=== PATIENT | female | born 1985 | race American Indian/Alaskan Native ===

== ENCOUNTER 2021-01-20 19:07 | Emergency (ER) | payer BC ==
[2021-01-20] MEDS ORDERED: HALOPERIDOL LACTATE 5 MG/1 ML INJ IM PRN (19:37)
[2021-01-20] MEDS ORDERED: diphenhydrAMINE 50 MG/ML VIAL IM ONE (19:37)
--- NOTE | 2021-01-20 19:45 | Emergency Department Report ---
ED General Adult HPI - General Chief complaint: Psych Stated complaint: ALFA CARO PUI?: No Time Seen by Provider: 01/20/21 19:28 Source: EMS ( EMS documentation not available at time of chart dictation ), RN notes reviewed Mode of arrival: Stretcher Limitations: Other (Acute psychosis and disorganized behavior) - History of Present Illness Initial comments: The patient was evaluated in the emergency department for symptoms described in the history of present illness. He/she was evaluated in the context of the global COVID-19 pandemic, which necessitated consideration that the patient might be at risk for infection with the virus that causes COVID-19. Institutional protocols and algorithms that pertain to the evaluation of patients at risk for COVID-19 are in a state of rapid change based on information released by regulatory bodies including the CDC and federal and state organizations. These policies and algorithms were followed during the patient's care in the emergency department. Please note that these policies, procedures and recommendations changed on a rapid basis. This is a 35-year-old female. She is not known to myself previously. She is reportedly brought to the hospital by emergency medical services. Apparently, patient's significant other contacted emergency medical services because of abnormal behavior. The patient is standing and not verbal. She walks around with a steady gait. She walks in circles. She is making nonsensical sounds. The patient is not currently accompanied by friends or family at this time for additional information/collateral information. Patient herself appears to be acutely psychotic, and can therefore not describe the qualitative nature of her symptoms, exacerbating factors, relieving factors, or aggravating factors. History of present illness obtained entirely from collateral information from verbal and written report from nursing team. No additional history is available at this time. During the entire history and physical examination, I am chaperoned by youth teacher Chandrika Rowley. -: unknown - Related Data Previous Rx's Medication Instructions Recorded Last Taken Type OLANZapine [Zyprexa] 5 mg PO DAILY #30 tablet 01/22/21 Unknown Rx traZODone [Desyrel] 50 mg PO QHS #30 tab 01/22/21 Unknown Rx Allergies Allergy/AdvReac Type Severity Reaction Status Date / Time No Known Allergies Allergy Unverified 01/20/21 19:30 ED Review of Systems ROS: Stated complaint: ALFA EVAL Other details as noted in HPI Comment: Unobtainable due to pts medical conditions ED Past Medical Hx - Past Medical History Hx Psychiatric Treatment: Yes (bipolar) - Social History Smoking Status: Unknown if ever smoked Substance Use Type: None - Medications Home Medications: Home Medications Medication Instructions Recorded Confirmed Last Taken Type OLANZapine [Zyprexa] 5 mg PO DAILY #30 tablet 01/22/21 Unknown Rx traZODone [Desyrel] 50 mg PO QHS #30 tab 01/22/21 Unknown Rx ED Physical Exam - General Limitations: Other (Acute psychosis) General appearance: in no apparent distress, anxious - Head Head exam: Present: atraumatic, normocephalic - Eye Eye exam: Present: normal appearance, EOMI - ENT ENT exam: Present: normal exam, normal orophraynx, mucous membranes moist, normal external ear exam - Neck Neck exam: Present: normal inspection, full ROM. Absent: tenderness, meningismus - Respiratory Respiratory exam: Present: normal lung sounds bilaterally. Absent: respiratory distress, wheezes, rales, rhonchi, stridor, decreased breath sounds - Cardiovascular Cardiovascular Exam: Present: regular rate, normal rhythm, normal heart sounds. Absent: bradycardia, tachycardia, irregular rhythm, systolic murmur, diastolic murmur, rubs, gallop - GI/Abdominal GI/Abdominal exam: Present: soft. Absent: distended, tenderness, guarding, rebound, rigid, pulsatile mass - Extremities Exam Extremities exam: Present: normal inspection, full ROM, other (2+ pulses noted in the bilateral upper and lower extremities. There is no palpable cord. negative Homans sign. Muscular compartments are soft. The pelvis is stable.). Absent: pedal edema, calf tenderness - Back Exam Back exam: Present: normal inspection, full ROM. Absent: tenderness, CVA tende rness (R), CVA tenderness (L), paraspinal tenderness, vertebral tenderness - Neurological Exam Neurological exam: Present: altered (The patient is awake. The patient is walking in circles. The patient moves 4 extremities. The patient is nonverbal. The patient is humming to herself), other (There is no facial droop. Extraocular movements are intact.) - Psychiatric Psychiatric exam: Present: other (The patient is nonverbal) - Skin Skin exam: Present: warm, dry, intact, normal color. Absent: rash ED Course Vital Signs 01/20/21 01/20/21 01/20/21 19:35 21:22 21:27 Temperature 98.5 F Pulse Rate 129 H 129 H Respiratory 18 14 18 Rate Blood Pressure 126/93 Blood Pressure 126/93 [Right] O2 Sat by Pulse 99 99 Oximetry 01/20/21 01/20/21 01/20/21 23:18 23:30 23:46 Temperature Pulse Rate 97 H 97 H Respiratory 15 16 Rate Blood Pressure 119/82 116/77 Blood Pressure [Right] O2 Sat by Pulse 97 95 96 Oximetry 01/20/21 01/21/21 01/21/21 23:49 00:00 00:16 Temperature Pulse Rate 94 H 98 H 97 H Respiratory 16 15 14 Rate Blood Pressure 118/76 116/73 116/73 Blood Pressure [Right] O2 Sat by Pulse 97 97 96 Oximetry 01/21/21 01/21/21 01/21/21 00:30 00:46 01:00 Temperature Pulse Rate 94 H 86 99 H Respiratory 14 14 14 Rate Blood Pressure 117/73 117/73 128/81 Blood Pressure [Right] O2 Sat by Pulse 98 98 98 Oximetry 01/21/21 01/21/21 01/21/21 01:16 01:30 01:46 Temperature Pulse Rate 96 H 98 H 87 Respiratory 18 15 15 Rate Blood Pressure 128/81 128/81 Blood Pressure [Right] O2 Sat by Pulse 97 97 97 Oximetry 01/21/21 01/21/21 01/21/21 02:00 02:16 02:30 Temperature Pulse Rate 102 H 102 H 97 H Respiratory 16 14 15 Rate Blood Pressure 109/69 109/69 110/71 Blood Pressure [Right] O2 Sat by Pulse 96 96 96 Oximetry 01/21/21 01/21/21 01/21/21 02:46 03:00 03:15 Temperature Pulse Rate 98 H 89 90 Respiratory 15 13 12 Rate Blood Pressure 110/71 119/80 119/80 Blood Pressure [Right] O2 Sat by Pulse 96 97 95 Oximetry 01/21/21 01/21/21 01/21/21 03:30 03:46 04:00 Temperature Pulse Rate 95 H 98 H 101 H Respiratory 15 15 14 Rate Blood Pressure 114/77 114/77 119/71 Blood Pressure [Right] O2 Sat by Pulse 97 96 96 Oximetry 01/21/21 01/21/21 01/21/21 04:16 04:30 04:46 Temperature Pulse Rate 82 93 H 100 H Respiratory 14 13 15 Rate Blood Pressure 119/71 117/81 117/81 Blood Pressure [Right] O2 Sat by Pulse 94 96 96 Oximetry 01/21/21 01/21/21 01/21/21 05:00 13:36 13:45 Temperature 98.7 F 99.1 F Pulse Rate 125 H 156 H 136 H Respiratory 20 15 Rate Blood Pressure Blood Pressure 143/99 134/91 [Right] O2 Sat by Pulse 98 99 Oximetry 01/21/21 01/21/21 01/21/21 13:49 14:22 20:29 Temperature 98.2 F Pulse Rate 126 H 121 H 95 H Respiratory 18 17 18 Rate Blood Pressure Blood Pressure 151/107 162/105 131/99 [Right] O2 Sat by Pulse 98 98 99 Oximetry 01/21/21 01/21/21 01/22/21 22:35 23:00 08:02 Temperature 98.9 F Pulse Rate 91 H 89 Respiratory 17 20 Rate Blood Pressure 133/98 Blood Pressure 122/82 [Right] O2 Sat by Pulse 97 99 Oximetry - Reevaluation(s) Reevaluation #1: 01/20/21 19:47 Differential diagnosis, including but not limited to: Psychosis, medical clearance for psychiatric evaluation, electrolyte derangement, thyroid derangeme nt, structural intracranial abnormality, urinary tract infection Assessment and plan: 35-year-old female, with a possible history of bipolar disorder, who presents with probable acute decompensated psychosis. Patient not currently accompanied by friends or family at this time for additional information/collateral information, and as of this time, registration staff has not been able to provide me with the phone number of his significant other for collateral information. Patient placed on hold/1012. Appropriate screening laboratory studies, noncontrast CT scan of the brain, EKG ordered, Covid swab ordered in anticipation of placement in a psychiatric unit, patient did not respond to verbal commands, and will therefore required medication with haloperidol, Ativan, Benadryl, for acquisition of diagnostic studies to exclude emergent medical condition. Patient will be placed on a cardiac cath rn, and observed appropriately. Reevaluation #2: 01/20/21 23:[address] scan of the brain negative for acute findings. Urinalysis pending at this time Reevaluation #3: 01/21/21 00:45 Tachycardia resolved. Patient resting comfortably. Urinalysis pending at this time. At the moment, patient does not appear to have an immediate medical contraindication to psychiatric admission, evaluation, consultation and placement. She may be placed in the back psychiatric room pending psychiatric consultation. Patient's care was transferred to the overnight physician to follow-up on urinalysis. Reevaluation #4: 01/21/21 19:52 Urine sample contaminated with excessive epithelial cells. Given young age, lack of immune compromise, lack of fever, leukocytosis, do not suspect urinary tract infection or urinary pathology at this time. However, we will order repeat clean-catch urine sample. ED Medical Decision Making - Lab Data Result diagrams: 01/20/21 21:16 01/20/21 21:16 Vital Signs 01/20/21 21:27 Temperature 98.5 F Pulse Rate 129 H Respiratory 18 Rate Blood Pressure 126/93 [Right] O2 Sat by Pulse 99 Oximetry Lab Results 01/20/21 01/20/21 01/20/21 Range/Units 21:16 21:16 21:16 WBC 9.8 (4.5-11.0) K/mm3 RBC 4.55 (3.65-5.03) M/mm3 Hgb 14.1 (10.1-14.3) gm/dl Hct 40.8 (30.3-42.9) % MCV 90 (79-97) fl MCH 31 (28-32) pg MCHC 34 (30-34) % RDW 13.5 (13.2-15.2) % Plt Count 309 (140-440) K/mm3 Sodium 144 (137-145) mmol/L Potassium 4.3 (3.6-5.0) mmol/L Chloride 108.9 H (98-107) mmol/L Carbon Dioxide 24 (22-30) mmol/L Anion Gap 15 mmol/L BUN 11 (7-17) mg/dL Creatinine 0.9 (0.6-1.2) mg/dL Estimated GFR > 60 ml/min BUN/Creatinine Ratio 12 % Glucose 109 H (65-100) mg/dL Calcium 9.3 (8.4-10.2) mg/dL Magnesium 2.00 (1.7-2.3) mg/dL Total Bilirubin 0.20 (0.1-1.2) mg/dL AST 22 (5-40) units/L ALT 31 (7-56) units/L Alkaline Phosphatase 86 (35-129) units/L Total Creatine Kinase 549 H (30-135) units/L Total Protein 7.7 (6.3-8.2) g/dL Albumin 4.5 (3.9-5) g/dL Albumin/Globulin Ratio 1.4 % TSH 4.500 H (0.270-4.200) mlU/mL HCG, Quant (0-4) mIU/mL Salicylates (2.8-20.0) mg/dL Acetaminophen (10.0-30.0) ug/mL [place] (0.0-1.2) mmol/L Plasma/Serum Alcohol (0-0.07) % 01/20/21 01/20/21 01/20/21 Range/Units 21:16 21:16 21:16 WBC (4.5-11.0) K/mm3 RBC (3.65-5.03) M/mm3 Hgb (10.1-14.3) gm/dl Hct (30.3-42.9) % MCV (79-97) fl MCH (28-32) pg MCHC (30-34) % RDW (13.2-15.2) % Plt Count (140-440) K/mm3 Sodium (137-145) mmol/L Potassium (3.6-5.0) mmol/L Chloride (98-107) mmol/L Carbon Dioxide (22-30) mmol/L Anion Gap mmol/L BUN (7-17) mg/dL Creatinine (0.6-1.2) mg/dL Estimated GFR ml/min BUN/Creatinine Ratio % Glucose (65-100) mg/dL Calcium (8.4-10.2) mg/dL Magnesium (1.7-2.3) mg/dL Total Bilirubin (0.1-1.2) mg/dL AST (5-40) units/L ALT (7-56) units/L Alkaline Phosphatase (35-129) units/L Total Creatine Kinase (30-135) units/L Total Protein (6.3-8.2) g/dL Albumin (3.9-5) g/dL Albumin/Globulin Ratio % TSH (0.270-4.200) mlU/mL HCG, Quant < 2 (0-4) mIU/mL Salicylates < 0.3 L (2.8-20.0) mg/dL Acetaminophen 5.0 L (10.0-30.0) ug/mL [place] 0.1 (0.0-1.2) mmol/L Plasma/Serum Alcohol (0-0.07) % 01/20/21 Range/Units 21:16 WBC (4.5-11.0) K/mm3 RBC (3.65-5.03) M/mm3 Hgb (10.1-14.3) gm/dl Hct (30.3-42.9) % MCV (79-97) fl MCH (28-32) pg MCHC (30-34) % RDW (13.2-15.2) % Plt Count (140-440) K/mm3 Sodium (137-145) mmol/L Potassium (3.6-5.0) mmol/L Chloride (98-107) mmol/L Carbon Dioxide (22-30) mmol/L Anion Gap mmol/L BUN (7-17) mg/dL Creatinine (0.6-1.2) mg/dL Estimated GFR ml/min BUN/Creatinine Ratio % Glucose (65-100) mg/dL Calcium (8.4-10.2) mg/dL Magnesium (1.7-2.3) mg/dL Total Bilirubin (0.1-1.2) mg/dL AST (5-40) units/L ALT (7-56) units/L Alkaline Phosphatase (35-129) units/L Total Creatine Kinase (30-135) units/L Total Protein (6.3-8.2) g/dL Albumin (3.9-5) g/dL Albumin/Globulin Ratio % TSH (0.270-4.200) mlU/mL HCG, Quant (0-4) mIU/mL Salicylates (2.8-20.0) mg/dL Acetaminophen (10.0-30.0) ug/mL [place] (0.0-1.2) mmol/L Plasma/Serum Alcohol < 0.01 (0-0.07) % - EKG Data -: EKG Interpreted by Ia EKG shows normal: sinus rhythm Rate: normal - EKG Data When compared to previous EKG there are: previous EKG unavailable 01/20/21 22:43 EKG interpreted at 22: 30 Rhythm, 94 bpm. Normal axis, QTC 449 ms, high left ventricular voltage. This is an abnormal EKG. This is not a STEMI. No prior for comparison. - Radiology Data Radiology results: pending, report reviewed, image reviewed Noncontrast CT scan of the brain negative for acute findings. Critical care attestation.: If time is entered above; I have spent that time in minutes in the direct care of this critically ill patient, excluding procedure time. ED Disposition Clinical Impression: Medical clearance for psychiatric admission, Psychosis Disposition: DC-01 TO HOME OR SELFCARE Is pt being admited?: No Does the pt Need Aspirin: No Condition: Good Additional Instructions: Professional and Agency Contacts To help Resolve Crises(24/03) [place] Crisis Line: Suicide Prevention Line: Crisis Text Line: Text START to 824718 Emergency: 911 Outpatient COMMUNITY Behavioral Health Resources: DEAISHWARYAB: [facility] [address] [place], [place] [address] [facility] [address] [place] [address] [facility] - [address] [place] [address] Friday thru Friday - 8am - 5pm [facility] Address: [address] [place] [address] [place]: [facility] Address: [address] [place] [address] Friday thru Friday- 7am-2pm [facility] Address: [address] [place] [address] Friday thru Friday: 8:30AM-5PM Phone: [phone] Prescriptions: traZODone [Desyrel] 50 mg PO QHS #30 tab OLANZapine [Zyprexa] 5 mg PO DAILY #30 tablet Referrals: PRIMARY CARE,MD [Primary Care Provider] - 3-5 Days
[2021-01-20] MEDS: LORazepam 2 MG/ML VIAL IM PRN (21:20)
[2021-01-20 21:59] LABS: Hematocrit 40.8 % (30.3-42.9); Hemoglobin 14.1 gm/dl (10.1-14.3); Mean Corpuscular HGB Conc 34 % (30-34); Mean Corpuscular Volume 90 fl (79-97); Platelet Count 309 K/mm3 (140-440); Red Blood Count 4.55 M/mm3 (3.65-5.03); Red Cell Distribution Width 13.5 % (13.2-15.2)
[2021-01-20 22:13] LABS: Alanine Aminotransferase 31 units/L (7-56); Albumin 4.5 g/dL (3.9-5); BUN/Creatinine Ratio 12; Blood Urea Nitrogen 11 mg/dL (7-17); Calcium 9.3 mg/dL (8.4-10.2); Hemolysis Index 6
--- NOTE | 2021-01-20 23:29 | Cat Scan Report ---
CT HEAD WITHOUT CONTRAST INDICATION: Altered mental status, psychosis TECHNIQUE: All CT scans at this location are performed using CT dose reduction for ALARA by means of automated exposure control. COMPARISON: None available. FINDINGS: BRAIN: No hemorrhage or mass effect are seen. No evidence of acute infarction is noted. ORBITS: Normal as visualized. SOFT TISSUES OF HEAD: Normal. CALVARIUM: Normal. VISUALIZED PARANASAL SINUSES AND MASTOID AIR CELLS: Clear. ADDITIONAL FINDINGS: None. IMPRESSION: No acute intracranial abnormality. Signer Name: Don Conner MD Signed: 01/20/2021 11:25 PM Workstation Name: [email or web address]
[2021-01-20] MEDS ORDERED: diphenhydrAMINE 25 MG CAP PO PRN (23:32)
[2021-01-20] MEDS ORDERED: ACETAMINOPHEN 325 MG TAB PO PRN (23:32)
[2021-01-21] MEDS: LORazepam 2 MG/ML VIAL IM PRN (08:45)
--- NOTE | 2021-01-21 10:11 | Event Note ---
S: patient will not answer questions, just snaps fingers O: stable vital signs, NAD A: acute psychosis P: ED hold, 1013 form completed, awaiting MH recommendations, patient is gerson bland clear for psychiatric care
--- NOTE | 2021-01-21 10:49 | Consultation ---
History of Present Illness - Reason for Consult Consult date: 01/21/21 Reason for consult: psychosis - History of Present Psychiatric Illness Per ED note: This is a 35-year-old female. She is not known to myself previously. She is reportedly brought to the hospital by emergency medical services. Apparently, patient's significant other contacted emergency medical services because of abnormal behavior. The patient is standing and not verbal. She walks around with a steady gait. She walks in circles. She is making nonsensical sounds. During my assessment of 35y/o Jazmyn Rosario, she is nonsensical, acutely psychotic. She is difficulty to follow. The patient is pacing in circles, pointing at the other patient humming. She says "they put the wrong arm bad on me." She is holding it in her hand and pushes it forward for me to see it. It is who she states her name as. She then says "this is an cruzito. It is hearing everything we are saying." She then starts talking about "folks with kids" and the staff telling her that she is "jealous of her sister because she can't have any." The patient then starts looking at the door stating, "I see the mirror now." She then says "I'm so sleepy. They gave me something to make me forget." She starts walking again in circles. The patient tells me that the other patient in the room is "mute." She denies SI/HI. PAST PSYCHIATRIC HISTORY: Unable to assess PAST MEDICAL HISTORY: None reported Family Psychiatric History: None reported or documented SOCIAL HISTORY Unable to assess REVIEW OF SYSTEMS Unable to assess MENTAL STATUS EXAMINATION General Appearance: Dressed appropriately Behavior: anxious, pacing and cooperative at times. good eye contact Mood: okay Affect and affective range: Congruent with stated mood Thought Process: illogical, flight of ideas Speech: nonsensical Thought Content: Suicidal Ideation: Denies Homicidal Ideation: Denies Hallucinations: A/V Delusions: yes, paranoid Insight and Judgment: Impaired Memory/Cognition: Impaired Attention: Divided RECOMMENDATIONS 1013 Start Olanzapine 5mg po daily Start Trazodone 50mg po qhs Risks, benefits and alternatives of medications discussed with the patient, questions answered and consent obtained from patient. PSYCHOTHERAPY: Supportive psychotherapy provided MEDICAL: Per primary team DELIRIUM PRECAUTIONS: Please re-orient patient frequently, keep lights on during the day, and minimize benzodiazepines and opiates as these medications could worsen patient's confusion. CARBONIZER: Per medical team DISPOSITION: Recommend acute inpatient psychiatric hospitalization at this time Thank you for the consult. Please contact with any questions and/or concerns. Will follow. Case discussed with Dr. Holden Medications and Allergies Allergies Allergy/AdvReac Type Severity Reaction Status Date / Time No Known Allergies Allergy Unverified 01/20/21 19:30 Active Meds: Active Medications Acetaminophen (Acetaminophen 325 Mg Tab) 650 mg PO Q6HR PRN PRN Reason: PAIN Diphenhydramine HCl (Diphenhydramine 25 Mg Cap) 50 mg PO QHS PRN PRN Reason: Insomnia Haloperidol Lactate (Haloperidol Lactate 5 Mg/1 Ml Inj) 5 mg IM Q6HR PRN PRN Reason: Agitation Last Admin: 01/20/21 21:20 Dose: 5 mg Documented by: Lorazepam (Lorazepam 2 Mg/Ml Vial) 2 mg IM Q4HR PRN PRN Reason: Agitation Last Admin: 01/21/21 08:45 Dose: 2 mg Documented by: Mental Status Exam - Vital signs Last Vital Signs Temp 98.7 F 01/21/21 05:00 Pulse 125 H 01/21/21 05:00 Resp 20 01/21/21 05:00 BP 143/99 01/21/21 05:00 Pulse Ox 98 01/21/21 05:00 Results Result Diagrams: 01/20/21 21:16 01/20/21 21:16 Abnormal lab results 01/20/21 01/20/21 01/20/21 Range/Units 21:16 21:16 21:16 Chloride 108.9 H (98-107) mmol/L Glucose 109 H (65-100) mg/dL Total Creatine Kinase 549 H (30-135) units/L TSH 4.500 H (0.270-4.200) mlU/mL Salicylates < 0.3 L (2.8-20.0) mg/dL Acetaminophen (10.0-30.0) ug/mL 01/20/21 Range/Units 21:16 Chloride (98-107) mmol/L Glucose (65-100) mg/dL Total Creatine Kinase (30-135) units/L TSH (0.270-4.200) mlU/mL Salicylates (2.8-20.0) mg/dL Acetaminophen 5.0 L (10.0-30.0) ug/mL All other labs normal.
[2021-01-21 19:42] LABS: Bacteria,Urine 1+ /HPF (Negative); Bilirubin,Urine NEG (Negative); Blood,Urine NEG (Negative); Color,Urine Yellow (Yellow); Mucus,Urine 3+ /HPF; Protein,Urine <15 mg/dL mg/dL (Negative); Urobilinogen,Urine < 2.0 mg/dL (<2.0)
[2021-01-21 19:46] LABS: Amphetamine Screen,Urine Negative; Benzodiazepines Screen,Urine Negative; Cannabinoid Screen,Urine Negative; Cocaine Screen,Urine Negative; Methadone Screen,Urine Negative; Opiate Screen,Urine Negative
[2021-01-21] MEDS ORDERED: traZODone 50 MG TAB PO SCH (22:00)
[2021-01-21] MEDS ORDERED: METOPROLOL TARTRATE 50 MG TAB PO SCH (22:00)
[2021-01-21] MEDS: METOPROLOL TARTRATE 25 MG TAB PO SCH (22:35)
[2021-01-22 08:04] VITALS: BP 122/82
--- NOTE | 2021-01-22 10:27 | Emergency Department Report ---
Blank Doc - Documentation Documentation: No complaint or issue overnight. Vital signs stable. Labs reviewed and showed elevated CK and TSH. I repeated CK and order a thyroid panel. I will follow up on the test results.
[2021-01-22 10:49] LABS: Bilirubin,Urine NEG (Negative); Blood,Urine LG (Negative); Color,Urine Yellow (Yellow); RBC,Urine < 1.0 /HPF (0.0-6.0)
[2021-01-22 10:56] LABS: WBC,Urine < 1.0 /HPF (0.0-6.0)
[2021-01-22] MEDS: METOPROLOL TARTRATE 25 MG TAB PO SCH (11:13)
--- NOTE | 2021-01-22 11:21 | Progress Note ---
Subjective - Reason for Consult Consult date: 01/22/21 Reason for consult: psychosis - Chief Complaint Chief complaint: Per Nurse note: Staff says the patient has been calm and cooperative, with no sign of psychosis The patient was seen today. She presents much better than yesterday. She is conversational and lucid. The patient says "the only thing I'm confused about as to why I'm here." She says "I know they said I was acting erratic." She says "but I'm much better today." SHe says she was "only taking her medication as needed when she felt overwhelmed." I advised the patient she should take her medication everyday. She says "maybe that was the problem then." She denies any SI/HI or hallucinations of any kind. She also denies any fear or feelings of endangerment. REVIEW OF SYSTEMS Constitutional: Negative for weight loss ENT: Negative for stridor Respiratory: Negative for cough or hemoptysis All other systems reviewed and are negative MENTAL STATUS EXAMINATION General Appearance: Dressed appropriately Behavior: calm, cooperative Mood: okay, better Affect and affective range: Congruent with stated mood Thought Process: Goal directed Speech: nonsensical Thought Content: Suicidal Ideation: Denies Homicidal Ideation: Denies Hallucinations: Denies Delusions: None elicited Insight and Judgment: Limited Memory/Cognition: Limited Attention: Undivided RECOMMENDATIONS d/c 1013 Olanzapine 5mg po daily Trazodone 50mg po qhs Risks, benefits and alternatives of medications discussed with the patient, questions answered and consent obtained from patient. PSYCHOTHERAPY: Supportive psychotherapy provided MEDICAL: Per primary team DELIRIUM PRECAUTIONS: Please re-orient patient frequently, keep lights on during the day, and minimize benzodiazepines and opiates as these medications could worsen patient's confusion. INSTALLMENT AGENT: Per medical team DISPOSITION: Do not recommend acute inpatient psychiatric hospitalization at this time. The patient understands that if SI/HI or fear of endangerment arise she is to seek immediate assistance. The patient is to follow up in 7 to 14 days upon discharge The fiber artist to further discuss safety plan and give outpatient resources Thank you for the consult. Please contact with any questions and/or concerns. Will sign off. Case discussed with Dr. Holden Mental Status Exam - Vital signs Last Vital Signs Temp 98.9 F 01/22/21 08:02 Pulse 89 01/22/21 08:02 Resp 20 01/22/21 08:02 BP 122/82 01/22/21 08:02 Pulse Ox 99 01/22/21 08:02
[2021-01-22 12:29] LABS: Free T4 (Free Thyroxine) 1.17 ng/dL (0.76-1.46)
--- NOTE | 2021-01-23 10:22 | Electrocardiograph Report ---
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
== END 2021-01-22 13:20 | disposition home or self-care (01) ==
LOC: ED 19:07
DX: F29 Unspecified psychosis not due to a substance or known physiological condition (principal); F31.9 Bipolar disorder, unspecified; Z00.8 Encounter for other general examination; Z79.899 Other long term (current) drug therapy
CPT/HCPCS: 36415; 70450; 80053; 80178; 81001; 82550; 83735; 84439; 84443; 84702; 85027; 93005; 96372; 99285; J1200; J1630; J2060; 80307; 80320; 87086; G0480; U0003